=== PATIENT | female | born 1990 | race Caucasian/White ===

== ENCOUNTER 2018-09-01 10:40 | Day surgery (SDC) | payer BC ==
[2018-08-30 13:42] LABS: BASOPHILS ABSOLUTE AUTO 0.06 K/mm3 (0.00-0.23); BASOPHILS PERCENT AUTO 1 % (0-2); EOSINOPHILS ABSOLUTE AUTO 0.12 K/mm3 (0.00-0.68); EOSINOPHILS PERCENT AUTO 3 % (0-6); Hematocrit 39.7 % (33.0-51.0); Hemoglobin 13.1 g/dL (11.5-16.0); IMMATURE GRAN ABSOLUTE AUTO 0.01 K/mm3 (0.00-0.10); IMMATURE GRAN PERCENT AUTO 0 % (0-1); LYMPHOCYTES ABSOLUTE AUTO 1.74 K/mm3 (0.84-5.20); LYMPHOCYTES PERCENT AUTO 37 % (21-46); MONOCYTES PERCENT AUTO 6 % (4-13); Mean Corpuscular HGB 27.2 pg (26.0-34.0); Mean Corpuscular Volume 82 fL (80-100); Mean Platelet Volume 9.3 fL (9.1-12.4); NEUTROPHILS ABSOLUTE AUTO 2.52 K/mm3 (1.96-9.15); NEUTROPHILS PERCENT AUTO 53 % (41-73); Platelet Count 321 K/mm3 (150-400); RDW Coefficient Variation 13.3 % (11.7-14.2); RDW Standard Deviation 40.2 fL (35.1-46.3); Red Blood Cell Count 4.82 M/mm3 (3.80-5.20); White Blood Cell Count 4.75 K/mm3 (4.00-11.30)
[~2018-09-01] VITALS: Ht 149.9 cm; Wt 49.0 kg
[~2018-09-01 10:40] MED LIST: IBUP800 PO; OXYACE5T PO; PROM25 PO; Verotin-Gr Cap1 EACH PO
--- NOTE | 2018-09-01 11:05 | NUR ---
Ambulatory in Day Surgery History, Chart, Medications and Allergies reviewed before start of procedure.Lungs clear T/O to Auscultation. Patient confirms NPO status and agrees with scheduled surgery. Pre-Op teaching done. Pt verbalizes understanding.
--- NOTE | 2018-09-01 13:46 | NUR ---
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 REPORT DONE.
[2018-09-02 04:28] LABS: BASOPHILS ABSOLUTE AUTO 0.02 K/mm3 (0.00-0.23); BASOPHILS PERCENT AUTO 0 % (0-2); EOSINOPHILS PERCENT AUTO 0 % (0-6); Hematocrit 35.2 % (33.0-51.0); Hemoglobin 11.1 g/dL (11.5-16.0); IMMATURE GRAN ABSOLUTE AUTO 0.03 K/mm3 (0.00-0.10); IMMATURE GRAN PERCENT AUTO 0 % (0-1); LYMPHOCYTES ABSOLUTE AUTO 0.91 K/mm3 (0.84-5.20); LYMPHOCYTES PERCENT AUTO 10 % (21-46); MONOCYTES ABSOLUTE AUTO 0.81 K/mm3 (0.16-1.47); MONOCYTES PERCENT AUTO 9 % (4-13); Mean Corpuscular HGB 26.7 pg (26.0-34.0); Mean Corpuscular HGB Conc 31.5 g/dL (31.5-36.5); Mean Corpuscular Volume 85 fL (80-100); Mean Platelet Volume 9.8 fL (9.1-12.4); NEUTROPHILS ABSOLUTE AUTO 7.11 K/mm3 (1.96-9.15); NEUTROPHILS PERCENT AUTO 80 % (41-73); Platelet Count 258 K/mm3 (150-400); RDW Coefficient Variation 13.4 % (11.7-14.2); RDW Standard Deviation 41.7 fL (35.1-46.3); Red Blood Cell Count 4.15 M/mm3 (3.80-5.20); White Blood Cell Count 8.88 K/mm3 (4.00-11.30)
--- NOTE | 2018-09-02 04:52 | NUR ---
SHIFT SUMMARY PT A&O X4 T/O SHIFT. POD#1 LAP LAVH; SITES CDI. ABD SOFT; PAIN MANGED PER EMAR. K-PAD IN REACH. CLEARS T/O SHIFT; PT DENIES FLATUS. UP X1. CALL LIGHT IN REACH; PT DEMONSTRATES USE. SCD'S TO BLE'S. SPOUSE IN ROOM T/O SHIFT. WCTM UNTIL REPORT TO DAY SHIFT RN.
[2018-09-02] MEDS ORDERED: PROM25 PO (14:23)
[2018-09-02] MEDS ORDERED: Percocet 5-3251 EACH PO (14:23)
[2018-09-02] MEDS ORDERED: IBUP800 PO (14:23)
== END 2018-09-02 17:30 | disposition home or self-care (01) ==
LOC: ORSCMMR 10:40 → ORD 12:15 → ORSCMMR 12:15 → SURS 16:53 → ORSCMMR 09-02 17:30 → SURS 09-02 17:30
PROVIDERS: Obstetrics & Gynecology
PROC: 0UT9FZZ Resection of Uterus, Via Natural or Artificial Opening With Percutaneous Endoscopic Assistance (ICD-10-PCS; principal; 2018-09-01 12:15)
PROC: 0U5F4ZZ Destruction of Cul-de-sac, Percutaneous Endoscopic Approach (ICD-10-PCS; principal; 2018-09-01 12:15)
PROC: 0UT7FZZ Resection of Bilateral Fallopian Tubes, Via Natural or Artificial Opening With Percutaneous Endoscopic Assistance (ICD-10-PCS; principal; 2018-09-01 12:15)
DX: N92.1 Excessive and frequent menstruation with irregular cycle (principal); N94.6 Dysmenorrhea, unspecified; N94.10 Unspecified dyspareunia; R10.2 Pelvic and perineal pain
CPT/HCPCS: 36415; 84703; 85025; 86850; 86900; 86901; 88307; 94762; J0690; J1100; J1885; J2250; J2370; J2405; J2550; J2710; J3010; J7120

== ENCOUNTER → 2018-10-30 | Outpatient (CLI) | payer BC ==
[~2018-10-30] MED LIST changes: +Percocet 5-3251 EACH PO
== END | disposition home or self-care (01) ==
LOC: LAB SHORT 09:30 → LAB EV 09:30
DX: N39.0 Urinary tract infection, site not specified (principal)
CPT/HCPCS: 87077; 87086; 87186

== ENCOUNTER → 2018-11-28 | Outpatient (CLI) | payer BC | END | disposition home or self-care (01) | LOC: LAB SHORT 15:21 → LAB EV 15:21 | DX: N39.0 Urinary tract infection, site not specified (principal) | CPT/HCPCS: 87086 ==

== ENCOUNTER → 2019-10-07 | Outpatient (CLI) | payer BC | END | disposition home or self-care (01) | LOC: LAB SHORT 10:51 → LAB EV 10:51 | DX: N39.0 Urinary tract infection, site not specified (principal) | CPT/HCPCS: 87077; 87086; 87186 ==

== ENCOUNTER → 2024-07-24 | Outpatient (CLI) | payer BC | LOC: LAB SHORT 14:14 | DX: N39.0 Urinary tract infection, site not specified (principal) | CPT/HCPCS: 87077; 87086; 87186 ==